=== PATIENT | female | born 1950 | race Caucasian/White ===

== ENCOUNTER 2022-12-18 10:19 | Day surgery (SDC) | payer MEDICARE, SELFPAY ==
[2022-12-18] VITALS (16 sets, daily range): BP systolic 102–136; BP diastolic 49–85; PULSE 59–87; RESP 14–18; TEMP 36.3–37.2; O2SAT 90–100; BMI 32.6
--- NOTE | 2022-12-18 11:01 | ED.ABDPAIN ---
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 This occurred since last night, she feels woke up this morning, but really started overnight. She describes bloating, pain that radiates to her right scapular region, she says taking a deep breath in really does not hurt, denies fevers or chills but has had some nausea associated with this. No diarrhea dysuria she has no previous history of any significant operations on her abdomen, but has had previous C-sections. Eating and drinking normal yesterday but today she has not eaten anything. Denies a rash, associated with this. No history of falls trauma, she is a nondrinker, nonsmoker, no use of drugs. Past history of some mild hypertension, Intolerance to both lisinopril and statins noted. MD elicited complaint: abdominal pain Pertinent past history: none Onset (ago): hour(s) Pain Consistency: constant Location: RUQ Severity: moderate Quality: stabbing Radiation: R flank Migration to: no migration Exacerbating factors: movement Relieving factors: nothing Associated symptoms: nausea Related Data Patient : No Home Medications Medication Instructions Recorded Confirmed hydrochlorothiazide 25 mg tablet 25 mg PO DAILY 12/18/22 12/18/22 metoprolol succinate 50 mg 50 mg PO HS 12/18/22 12/18/22 tablet,extended release 24 hr potassium chloride 10 mEq 10 meq PO DAILY 12/18/22 12/18/22 capsule,extended release prednisolone acetate 1 % eye 1 drp ophthalmic (eye-left) QID PRN 12/18/22 12/18/22 drops,suspension Allergies Allergy/AdvReac Type Severity Reaction Status Date / Time lisinopril AdvReac Unknown Cough Verified 12/18/22 10:27 [id number] Reductase AdvReac Unknown Verified 12/18/22 10:27 Inhibitor Review of Systems Status of ROS Reports: 10 or more systems reviewed and unremarkable except as noted in History and below PFSH PFSH Social History Smoking Status: Never smoker Exam Narrative: Exam Narrative: Patient is the in no apparent distress in room 6, speaking to me normally. Pupils are equal round reactive to light there is no scleral icterus redness TMs are normal oropharynx normal hydration status excellent, neck is supple no meningismus, chest is good air entry bilaterally with no wheezing crackles noted heart sounds are normal. She does not splint when she takes a deep breath in. She is very tender in the right upper quadrant on palpation in this area. No peritoneal signs, the rest of her abdomen is soft, bowel sounds are quiet. No CVA tenderness no masses no hernias noted. Lower extremities move normal range of motion, with no edema swelling rashes noted. Neurologically intact. Const: Vital Signs, click to edit/add: Vital Signs - 24 hr 12/18/22 10:29 12/18/22 11:59 12/18/22 12:15 Temperature 97.4 F L Pulse Rate [Pulse Oximeter] 60 78 Respiratory Rate 14 16 Blood Pressure [Le ft Upper Arm] 136/72 136/72 Pulse Oximetry 100 97 97 Oxygen Delivery Me thod Room Air Room Air Documenting provider has reviewed patient's vital signs: yes Course Course Hospital Course: I reviewed the ultrasound mother doing at the room, her gallbladder wall is a little thickened 0.6 and also 0.48. Stones were noted, with layering and also sludge, common bile duct was not enlarged. But she had a positive Concepcion sign. Given what I am seeing I think she has early cholecystitis. Await further radiological ovary but did contact my surgeon Dr. Armstrong, doctor: Low review the films, but likely will do a procedure this afternoon. I discussed with the patient she is in agreement. Pain is markedly better with the Dilaudid. Given what I see, she is ASA 2 for surgery, Reevaluation(s) Time of Reevaluation #1: 11:51 Reevaluation #1: Discussed with the patient she still has pretty good pain although the Toradol did take the edge wary I do not think she is going to tolerate ultrasound pushing on her abdomen to get the images, and she agreed to take Dilaudid 0.5 mg. Vital Signs Vital signs: Initial Vital Signs Temperature 97.4 F L 12/18/22 10:29 Temperature Source Temporal Artery Scan 12/18/22 10:29 Pulse Rate 60 12/18/22 10:29 Pulse Rhythm Regular 12/18/22 10:29 Respiratory Rate 14 12/18/22 10:29 Blood Pressure 136/72 12/18/22 10:29 Blood Pressure Mean 93 12/18/22 10:29 Blood Pressure Position Sitting 12/18/22 10:29 Pulse Oximetry 100 12/18/22 10:29 Oxygen Delivery Method Room Air 12/18/22 10:29 Vital Signs Temperature 97.4 F L 12/18/22 10:29 Pulse Rate 60 12/18/22 10:29 Respiratory Rate 14 12/18/22 10:29 Blood Pressure 136/72 12/18/22 10:29 Pulse Oximetry 100 12/18/22 10:29 Oxygen Delivery Method Room Air 12/18/22 10:29 Temperature 97.4 F L 12/18/22 10:29 Pulse Rate 78 12/18/22 11:59 Respiratory Rate 16 12/18/22 11:59 Blood Pressure 136/72 12/18/22 11:59 Pulse Oximetry 97 12/18/22 12:15 Oxygen Delivery Method Room Air 12/18/22 11:59 MDM - Abdominal Pain MDM Narrative Medical decision making narrative: During the evaluation of this patient I considered multiple differential diagnosis including life-threatening differentials which are appendicitis, aortic aneurysm, mesenteric ischemia, bowel perforation, ectopic , volvulus and bowel obstruction, other differential diagnosis include but are not limited to inflammatory bowel disease, cholecystitis, pancreatitis, hepatitis, gastritis, GERD, diverticulitis, peptic ulcer disease, pyelonephritis/UTI, renal colic/stone, pelvic inflammatory disease, cervicitis, endometritis, intrauterine , dysfunctional uterine bleeding, ovarian cyst/torsion, spontaneous as well as other etiologies I discussed with her that biliary colic would be high on my list, we will start an IV do some blood test, I initially ordered Dilaudid, but she declined this and would like just the Toradol. I will do a point of care ultrasound, Medical Records Attestation: I reviewed the patient's medical records. Lab Data Attestation: I reviewed the patient's lab results. Labs: Lab Results 12/18/22 12/18/22 Range/Units 11:00 11:15 WBC 13.16 H (4.50-11.00) K/uL RBC 3.91 L (4.00-5.20) m/uL Hgb 11.9 L (12.0-16.0) gm/dL Hct 35.1 (33.0-51.0) % MCV 90 (80-100) fL MCH 30 (26-34) pg MCHC 34 (32-36) gm/dL RDW Coeff of Ngoc 12.3 (11.5-15.5) % Plt Count 378 (140-440) K/uL Neut % (Auto) 88.9 H (42.0-72.0) % Lymph % (Auto) 6.9 L (20-44) % [place] % (Auto) 3.3 (0.0-11.0) % Eos % (Auto) 0.1 (0.0-7.0) % Baso % (Auto) 0.6 (0.0-3.0) % Neut # (Auto) 11.70 H (1.7-7.0) K/uL Lymph # (Auto) 0.90 (0.90-2.90) K/uL [place] # (Auto) 0.40 (0.00-0.90) K/UL Eos # (Auto) 0.00 (0.00-0.50) K/uL Baso # (Auto) 0.10 (0.00-0.30) K/uL Abs Immat Gran (auto) 0.00 (0.00-0.30) K/uL Imm/Tot Granulo (auto) 0.2 % Sodium 133 L (135-149) mmol/L Potassium 3.4 L (3.6-5.1) mmol/L Chloride 97 (96-114) mmol/L Carbon Dioxide 25 (20-32) mmol/L BUN 21 (7-30) mg/dL Creatinine 0.6 (0.5-1.5) mg/dL Estimated Creat Clear 44.56 Estimated GFR 96 ml/min Glucose 140 H (60-115) mg/dL Calcium 9.5 (8.4-10.6) mg/dL Total Bilirubin 0.3 (0.1-1.5) mg/dL Direct Bilirubin 0.0 (0.0-0.5) mg/dL AST 26 (12-35) U/L ALT 24 (4-35) U/L Alkaline Phosphatase 61 (40-150) U/L C-Reactive Protein 1.5 H (0.5-1.0) mg/dL Total Protein 8.1 (6.0-8.3) g/dL Albumin 4.7 (3.3-5.0) g/dL Amylase 68 (18-89) U/L Lipase 137 (23-300) U/L Urine Color Yellow (Yellow) Urine Appearance Slightly Cloudy A (Clear) Urine pH 5.5 (5.0-8.5) Ur Specific [place] >= 1.030 (1.000-1.030) Urine Protein Trace A (Negative) Urine Glucose (UA) Negative (Negative) Urine Ketones Negative (Negative) Urine Blood Negative (Negative) Urine Nitrite Negative (Negative) Urine Bilirubin Negative (Negative) Urine Urobilinogen 0.2 (0.2-1.0) Ur Leukocyte Esterase Negative (Negative) Urine RBC 0-2 (0-2) Urine WBC 0-2 (0-5) Ur Squamous Epith Cells Few (None-Few) Urine Bacteria Few A (None) Discharge Plan Discharge Clinical Impression: Acute cholecystitis Patient Disposition: XFER to OR Condition: Improved Prescriptions: No Action metoprolol succinate 50 mg tablet extended release 24 hr 50 mg PO HS hydrochlorothiazide 25 mg tablet 25 mg PO DAILY potassium chloride 10 mEq capsule, extended release 10 meq PO DAILY prednisolone acetate 1 % drops,suspension 1 drp ophthalmic (eye-left) QID PRN Follow Up/Referrals: Devon Torre MD [Primary Care Provider] -
[2022-12-18 11:12] LABS: Basophils Percent Auto 0.6 % (0.0-3.0); Eosinophils Percent Auto 0.1 % (0.0-7.0); Hematocrit 35.1 % (33.0-51.0); Hemoglobin* 11.9 gm/dL (12.0-16.0); Immature Granulocytes Pct Auto 0.2 %; Lymphocytes Percent Auto 6.9 % (20-44); Mean Corpuscular HGB Conc 34 gm/dL (32-36); Mean Corpuscular Hemoglobin 30 pg (26-34); Mean Corpuscular Volume 90 fL (80-100); Monocytes Percent Auto 3.3 % (0.0-11.0); Neutrophils Percent Auto 88.9 % (42.0-72.0); Platelet Count* 378 K/uL (140-440); RDW Coefficient of Variation % 12.3 % (11.5-15.5); Red Blood Count 3.91 m/uL (4.00-5.20); White Blood Count* 13.16 K/uL (4.50-11.00)
[2022-12-18 11:14] LABS: Slide Review Reflex No
[2022-12-18] MEDS: KETOROLAC 30 MG/ML inj IVP (11:25)
[2022-12-18] MEDS: 0.9 % SODIUM CHLORIDE 1000 ml 1,000 ML IV (11:25)
[2022-12-18 11:26] LABS: Appearance Urine Slightly Cloudy (Clear); Bilirubin Urine Negative (Negative); Blood Urine Negative (Negative); Color Urine Yellow (Yellow); Glucose Urine Negative (Negative); Ketones Urine Negative (Negative); Leukocyte Esterase Urine Negative (Negative); Nitrite Urine Negative (Negative); Protein Urine Trace (Negative); Specific Gravity Urine >= 1.030 (1.000-1.030); Urobilinogen Urine 0.2 (0.2-1.0); pH Urine 5.5 (5.0-8.5)
[2022-12-18] MEDS: ONDANSETRON 2 MG/ML inj 4 MG IVP (11:26)
[2022-12-18 11:27] LABS: Albumin* 4.7 g/dL (3.3-5.0); Chloride* 97 mmol/L (96-114); Sodium* 133 mmol/L (135-149)
[2022-12-18 11:28] LABS: Potassium* 3.4 mmol/L (3.6-5.1)
[2022-12-18 11:30] LABS: Amylase* 68 U/L (18-89); Aspartate Amino Transferase* 26 U/L (12-35); Bilirubin Total* 0.3 mg/dL (0.1-1.5); Carbon Dioxide* 25 mmol/L (20-32); Creatinine* 0.6 mg/dL (0.5-1.5); Est. Creatinine Clearance* 44.56; Estimated Glomerular Filt Rate 96 ml/min; Total Protein* 8.1 g/dL (6.0-8.3)
[2022-12-18 11:31] LABS: Alanine Aminotransferase* 24 U/L (4-35); Alkaline Phosphatase* 61 U/L (40-150); Blood Urea Nitrogen* 21 mg/dL (7-30); Calcium* 9.5 mg/dL (8.4-10.6); Glucose* 140 mg/dL (60-115); Lipase* 137 U/L (23-300)
[2022-12-18 11:33] LABS: C Reactive Protein* 1.5 mg/dL (0.5-1.0)
[2022-12-18 11:33] LABS: Bacteria Urine Few; RBC Urine 0-2 (0-2); Squamous Epithelial Cell Urine Few (None-Few); WBC Urine 0-2 (0-5)
--- NOTE | 2022-12-18 11:50 | CRLHL7_ITS ---
For Patients: As a result of the Century Cures Act, medical imaging exams and procedure reports are released immediately into your electronic medical record. You may view this report before your referring provider. If you have questions, please contact your health care provider. INDICATION: Right upper quadrant pain. FINDINGS: Transabdominal imaging. Visualized pancreas is unremarkable. Aorta is non aneurysmal. IVC is patent. Liver echotexture mildly coarse and echogenic. Small area of fatty sparing around the gallbladder fossa. Multiple stones in the gallbladder. Some layering sludge. Wall thickness mildly enlarged at 6 mm. No sonographic Concepcion sign is reported. Common bile duct 6 mm at the thanh hepatis without obvious filling defect. Right kidney sonographically normal. No ascites in the field of view. IMPRESSION: Cholelithiasis. Nonspecific mild wall thickening without acute cholecystitis sonographic Concepcion sign. Dictated by Dung Baig MD @ 12/18/2022 2:16:25 PM (Electronically Signed)
[2022-12-18] MEDS: HYDROmorphone 0.5 mg/0.5 ml inj IVP (11:56)
--- NOTE | 2022-12-18 12:15 | PC.NURSE ---
Report received from TORRI Tejeda. Guard Lieutenant went in to introduce self to patient. 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
--- NOTE | 2022-12-18 14:39 | P.GSHP_ITS ---
History of Present Illness History of Present Illness Date Seen: 12/18/22 Chief complaint: Bloating, back ache, nausea Narrative: Sophia Hollis is a 72 year old female who presented to the emergency department with epigastric and right upper quadrant abdominal pain. She states that the pain started yesterday after eating pizza for dinner. Initially she only felt ?really full?, but she woke up at 1:00 a.m. in severe pain. She describes it as a stabbing sensation in her upper mid abdomen, that eventually radiated to the side and back. She has never had pain like this before. The pain has improved with narcotic pain medicine in the emergency department, but is still present. Does report some associated nausea, no vomiting. Do last ate yesterday around 4:00 p.m.. Her abdominal surgical history is positive for C- section. She denies any problems with anesthesia or bleeding. 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 Review of Systems Status of ROS: Reports: 10 or more systems reviewed and unremarkable except as noted in History and below PFSH PFS Social History Smoking Status: Never smoker Meds Home Medications and Allergies Home Medications Medication Instructions Recorded Confirmed Type hydrochlorothiazide 25 mg tablet 25 mg PO DAILY 12/18/22 12/18/22 History metoprolol succinate 50 mg 50 mg PO HS 12/18/22 12/18/22 History tablet,extended release 24 hr potassium chloride 10 mEq 10 meq PO DAILY 12/18/22 12/18/22 History capsule,extended release prednisolone acetate 1 % eye 1 drp ophthalmic (eye-left) QID PRN 12/18/22 12/18/22 History drops,suspension Allergies Allergy/AdvReac Type Severity Reaction Status Date / Time lisinopril AdvReac Unknown Cough Verified 12/18/22 10:27 [id number] Reductase AdvReac Unknown Verified 12/18/22 10:27 Inhibitor Exam Narrative: Exam Narrative: General: Alert and oriented, no acute distress Respiratory: Equal breath rise bilaterally, clear breath sounds in maintained on room air CV: Regular rhythm and rate Abdomen: Soft, mild right upper quadrant tenderness to palpation with no guarding or rebound. Const: Vital Signs, click to edit/add: Vital Signs - 24 hr 12/18/22 10:29 12/18/22 11:59 12/18/22 12:15 Temperature 97.4 F L Pulse Rate [Pulse Oximeter] 60 78 Respiratory Rate 14 16 Blood Pressure [Le ft Upper Arm] 136/72 136/72 Pulse Oximetry 100 97 97 Oxygen Delivery Me thod Room Air Room Air 12/18/22 13:11 Temperature Pulse Rate [Pulse Oximeter] 65 Respiratory Rate 18 Blood Pressure [Le ft Upper Arm] 132/84 Pulse Oximetry 97 Oxygen Delivery Me thod Room Air Results Results Labs: Reviewed, leukocytosis (WBC 13). LFTs within normal limits Abdominal ultrasound report/results: report reviewed and image reviewed Assessment and Plan Assessment and plan (1) Acute cholecystitis: Status: Acute Plan Patient is a 72-year-old female with clinical workup and history consistent with acute cholecystitis. I had a detailed conversation with the patient regarding the diagnosis of acute cholecystitis. We discussed the treatment options including observation with diet modification and laparoscopic cholecystectomy. We discussed the risks of surgery (including but not limited to) the risks of bleeding, infection, injury to other structures in the abdomen including bile duct injury, bile leak and conversion to an open operation. We discussed the possibility that the patient's pain not improve with surgery. We discussed the possibility of permanent post-operative diarrhea that may require medical management. Additionally, the conceivably of complications requiring additional surgery or further hospitalization were also discussed including the risks of TX, respiratory failure, stroke and blood clots. The patient voiced an understanding of our conversation, had the opportunity to ask questions, agreed to accept the risks of surgery and asked that we proceed with surgery. -OR for laparoscopic cholecystectomy
[2022-12-18] MEDS: LACTATED RINGERS 1000 ML 1,000 ML 100 ML IV (14:50)
[2022-12-18] MEDS: BUPIVACAINE 0.5% 30 ML INJECTION (16:16)
--- NOTE | 2022-12-18 16:25 | PM.GSPRC ---
Operative Note Pre-op diagnosis: Acute cholecystitis Post-op diagnosis: Acute cholecystitis, hydrops of gallbladder Type of Procedure: Laparoscopic cholecystectomy Indications: Patient is a 72-year-old female who presented to the emergency department with clinical workup and symptoms consistent with acute cholecystitis. Risks and benefits of operative intervention were discussed at length with the patient. Risks included but was not limited to: Bleeding, infection, risk of damage to surrounding structures, possible need for additional procedures, possible need to convert to an open operation and postoperative complications such as pneumonia, pulmonary emboli or PR. All questions and concerns were addressed with the patient agreeing to proceed. Procedure Description: After discussing the risks and benefits of the procedure, the patient signed informed consent.? The operative site was marked and the patient was brought to the operating room and placed on the operating table in supine position.? Care was taken to pad the patient's pressure points.?? The patient was then intubated by anesthesia.?? The operative site was then prepped and draped in the usual sterile fashion.? A time-out was then performed. Entrance to the abdomen was gained via a 5 mm Visiport in the left upper quadrant. The abdomen was insufflated and briefly surveyed for signs of injury. There was none. 11 mm supra umbilical port was placed as well as 2 working ports along the right costal margin. Patient was then placed in reverse Trendelenburg position with the right side up. The gallbladder was hemorrhagic and distended. A laparoscopic needle was brought onto the field with about 60 mL of initially clear and then purulent material. Findings consistent with hydrops. A sample the fluid was sent for culture. After decompression the fundus was grasped and retracted cephalad. The infundibulum was grasped. A combination of hook cautery and blunt dissection was used to carefully dissect out the cystic duct and artery until they could clearly be seen entering the gallbladder without any intervening structures. Dissection was made difficult secondary to edema and inflammation. The gallbladder was dissected off the cystic plate to achieve the critical view. Once this was achieved the cystic duct and artery were each clipped with 2 clips proximally and 1 clip distally and transected with the scissors. The gallbladder was then taken off of the liver bed. And removed from the abdomen using an Endo-Catch bag. The gallbladder bed was surveyed for hemostasis. A small amount of bile which had spilled was suctioned from the abdomen. The umbilical port fascia was closed with 0 Vicryl via the Pee[place]e-Rebeca. the ports were then removed under direct vision. The skin was closed with absorbable subcuticular suture. Instrument sponge and needle counts were correct at the end of the case. The patient was then woken and transferred to the PACU in stable condition. ? The patient tolerated the procedure well. Findings: Hydrops of gallbladder. Anesthesia: GETA Surgeon: Gi Armstrong MD Specimen: Gallbladder Condition: stable Disposition: PACU
--- NOTE | 2022-12-18 16:37 | P.ANES_ITS ---
Anesthesia Charges Start Date/Time Anesthesia Start Date: 12/18/22 Anesthesia Start Time: 14:50 Stop Date/Time Anesthesia Stop Date: 12/18/22 Anesthesia Stop Time: 16:39 Summary Emergency: SENIOR SHAREPOINT ARCHITECT
--- NOTE | 2022-12-18 18:44 | PC.NURSE ---
Pt arrived to floor from surgery at 1725. Pt has 4 sites on abdomen. Pt had no complaints of pain. Pt alert and oriented. Tolerating ice chips well.?
[2022-12-18] MEDS: PIPERACILLIN/TAZOBACTAM 3.375 GM in 0.9 % SODIUM CHLORIDE Mini-bag 100 ML IVPB (19:41)
[2022-12-18] MEDS: 0.9 % SODIUM CHLORIDE 1000 ml 1,000 ML 125 ML IV (19:42)
[2022-12-18] MEDS: METOPROLOL SUCCINATE (XL) 50 MG TAB PO (20:12)
[2022-12-18] MEDS: ACETAMINOPHEN 325 MG TABLET 650 MG PO (20:12)
[2022-12-19] MEDS: PIPERACILLIN/TAZOBACTAM 3.375 GM in 0.9 % SODIUM CHLORIDE Mini-bag 100 ML IVPB ×2 (01:05→06:53)
[2022-12-19] MEDS: ACETAMINOPHEN 325 MG TABLET 650 MG PO ×2 (01:15→11:25)
[2022-12-19 04:35] VITALS: BP 98/56; PULSE 60; RESP 16; O2SAT 96
[2022-12-19] MEDS: 0.9 % SODIUM CHLORIDE 1000 ml 1,000 ML 125 ML IV (06:57)
[2022-12-19 07:40] VITALS: BP 98/60; PULSE 63; RESP 16; TEMP 36.8; O2SAT 97
--- NOTE | 2022-12-19 07:47 | PC.NURSE ---
END OF SHIFT NOTE: PT PLEASANT AND COOPERATIVE. A&Ox4. DENIES CP, SOB, N/V. AMBULATES INDEPENDENTLY.. VSS ON RA; AFEBRILE. 4x LAP SITES GLUE; C/D/I. FAMILY VISITED PRIOR TO HS; VERY LOVING AND SUPPORTIVE. CALL LIGHT WITHIN PT?S REACH.?
[2022-12-19 11:13] VITALS: BP 105/63; PULSE 64; RESP 16; TEMP 37.2; O2SAT 97
--- NOTE | 2022-12-19 11:20 | PM.DS1 ---
DS: Providers Provider Date Seen: 12/19/22 Primary care physician: Devon Torre MD Attending Physician on discharge: Gi Armstrong MD DS: Summary Hospital Course Hospital Course: Patient presented to the emergency department with clinical workup and symptoms consistent with acute cholecystitis. She underwent a laparoscopic cholecystectomy, with evidence of hydrops and some purulence of the gallbladder. She was continued on IV antibiotics while inpatient, with improvement of her abdominal pain, vitals stable and no fevers. No need for a course of antibiotics at home. On postop day 1 patient was tolerating a regular diet, having regular bowel movements and ambulating independently. Discharged home with instructions to call the clinic if she develops any increasing abdominal pain, fever or chills. Will see her for a 2 week postoperative follow-up. Time Spent with Patient Time attestation: Total time spent providing and/or coordinating discharge services: Exam Narrative: Exam Narrative: General: Alert and oriented, no acute distress Respiratory: Equal breath rise bilaterally, maintained on room air CV: Regular rhythm rate, well perfused Abdomen: Soft, appropriately tender over incision sites. Const: Vital Signs, click to edit/add: Vital Signs - 24 hr 12/18/22 11:59 12/18/22 12:15 12/18/22 13:11 Temperature Pulse Rate Pulse Rate [Pulse Oximeter] 78 65 Respiratory Rate 16 18 Blood Pressure [Le ft Arm] Blood Pressure [Le ft Upper Arm] 136/72 132/84 Pulse Oximetry 97 97 97 Oxygen Delivery Me thod Room Air Room Air Oxygen Flow Rate 12/18/22 17:30 12/18/22 17:45 12/18/22 18:00 Temperature 97.7 F 98.6 F 98.9 F Pulse Rate 82 Pulse Rate [Pulse Oximeter] 62 59 L Respiratory Rate 16 16 16 Blood Pressure [Le ft Arm] 132/85 125/76 125/76 Blood Pressure [Le ft Upper Arm] Pulse Oximetry 96 90 Oxygen Delivery Me thod Room Air Room Air Room Air Oxygen Flow Rate 0 0 0 12/18/22 18:15 12/18/22 18:30 12/18/22 19:00 Temperature 98.9 F 98.9 F 98.9 F Pulse Rate Pulse Rate [Pulse Oximeter] 62 62 62 Respiratory Rate 16 16 16 Blood Pressure [Le ft Arm] 122/72 116/65 125/75 Blood Pressure [Le ft Upper Arm] Pulse Oximetry 97 97 100 Oxygen Delivery Me thod Room Air Room Air Room Air Oxygen Flow Rate 0 0 0 12/18/22 19:30 12/18/22 20:30 12/18/22 21:30 Temperature Pulse Rate Pulse Rate [Pulse Oximeter] 87 63 62 Respiratory Rate 16 16 16 Blood Pressure [Le ft Arm] 118/77 113/68 112/56 L Blood Pressure [Le ft Upper Arm] Pulse Oximetry 96 96 94 Oxygen Delivery Me thod Room Air Room Air Room Air Oxygen Flow Rate 12/18/22 21:33 12/18/22 22:30 12/18/22 23:30 Temperature Pulse Rate Pulse Rate [Pulse Oximeter] 63 78 Respiratory Rate 16 16 16 Blood Pressure [Le ft Arm] 118/64 102/49 L Blood Pressure [Le ft Upper Arm] Pulse Oximetry 97 96 Oxygen Delivery Me thod Room Air Room Air Oxygen Flow Rate 12/19/22 04:35 12/19/22 07:40 Temperature 98.3 F Pulse Rate Pulse Rate [Pulse Oximeter] 60 63 Respiratory Rate 16 16 Blood Pressure [Le ft Arm] 98/56 L 98/60 Blood Pressure [Le ft Upper Arm] Pulse Oximetry 96 97 Oxygen Delivery Me thod Room Air Room Air Oxygen Flow Rate 0 DS: Data Data Completed and Pending Labs on day of discharge: Labs from last 24 hours 12/18/22 12/18/22 11:15 11:00 Sodium 133 L Potassium 3.4 L Chloride 97 Carbon Dioxide 25 BUN 21 Creatinine 0.6 Estimated Creat Clear 44.56 Estimated GFR 96 Glucose 140 H Calcium 9.5 Total Bilirubin 0.3 Direct Bilirubin 0.0 AST 26 ALT 24 Alkaline Phosphatase 61 C-Reactive Protein 1.5 H Total Protein 8.1 Albumin 4.7 Amylase 68 Lipase 137 Urine Color Yellow Urine Appearance Slightly Cloudy A Urine pH 5.5 Ur Specific [place] >= 1.030 Urine Protein Trace A Urine Glucose (UA) Negative Urine Ketones Negative Urine Blood Negative Urine Nitrite Negative Urine Bilirubin Negative Urine Urobilinogen 0.2 Ur Leukocyte Esterase Negative Urine RBC 0-2 Urine WBC 0-2 Ur Squamous Epith Cells Few Urine Bacteria Few A Preliminary micro results at discharge 12/18/22 Unknown Urine Culture - Preliminary Urine,Clean Catch 12/18/22 15:32 Anaerobic Culture - Preliminary Gallbladder Fluid Culture in Progress Discharge Plan Discharge Disposition: Home, Self-Care Discharging Surgeon: Gi Armstrong Follow-Up Appointment: 2 week follow up, [facility] Prescriptions: New oxycodone 5 mg tablet 5 mg PO Q6H PRN (Reason: pain) Qty: 10 0RF senna 8.6 mg capsule 8.6 mg PO DAILY PRN (Reason: constipation) Qty: 90 0RF Continued metoprolol succinate 50 mg tablet extended release 24 hr 50 mg PO HS hydrochlorothiazide 25 mg tablet 25 mg PO DAILY potassium chloride 10 mEq capsule, extended release 10 meq PO DAILY prednisolone acetate 1 % drops,suspension 1 drp ophthalmic (eye-left) QID PRN Activity Level: No strenuous activity Activity Detail: Activity as tolerated. Avoid strenuous activity. No lifting greater than 20 lb for 2 weeks. Discharge Diet: Low Fat/Low Cholesterol Diet Detail: Continue the low-fat diet for the next 2 weeks. After 2 weeks you can start a regular diet. Patient Instructions: Oxycodone, Rapid Release (By mouth), Senna (By mouth), Surgical Site Infections (DC), General Anesthesia (DC), Laparoscopic Cholecystectomy (DC), Post-Operative Instructions: Laparoscopic Cholecystectomy Additional Instructions: You were prescribed a narcotic pain medication. In addition you may supplement with Tylenol and/or ibuprofen. Be sure to not exceed greater than 4 g of Tylenol in a 24 hour period. While on narcotic pain medicine please take stool softeners. A prescription of stool softeners has been sent to the pharmacy. Stop if having greater than 2 stools per day. You can shower. Do not soak in a bath or swim for 2 weeks. Forms: Work/School Release Follow-up: Gi Armstrong MD [Staff Physician] - 12/30/22 1:15 pm ([facility] for follow-up.) Devon Torre MD [Primary Care Provider] - Discharge Orders: Discharge Order (Routine); Ordered 12/19/22 Ordered By: Gi Armstrong
--- NOTE | 2022-12-19 12:42 | PC.NURSE ---
Pt alert and oriented. VSS. Pt independent in room and in hallways. Pt walked in hallway right away in AM. Pt had pain ranging from 0-4 during shift see EMAR for intervention. Pt's IV removed at 1130; catheter intact. Pt discharging to home and was picked up by friend at 1230pm.
--- NOTE | 2022-12-20 14:13 | SUR.PHASEI ---
after talking with Didier on incomplete charting on Phase I (general data and completed by/time entry), he gave this nurse permission to complete the charting based on his exit from PACU to [facility]
== END 2022-12-19 12:30 | disposition home or self-care (01) ==
LOC: ED 13:04 → SS 13:34 → MEDSURG 17:15
PROVIDERS: Emergency Provider Family Medicine; PCP Family Medicine; Visit Provider Surgery
PROC: 0FT44ZZ Resection of Gallbladder, Percutaneous Endoscopic Approach (ICD-10-PCS; CPT 47562; principal; 2022-12-18 14:20)
DX: K80.00 Calculus of gallbladder with acute cholecystitis without obstruction (principal); K82.1 Hydrops of gallbladder
CPT/HCPCS: 47562; 00790; 36415; 76705; 80048; 80076; 81001; 82150; 83690; 85025; 86140; 87070; 87075; 87086; 87186; 87205; 88304; 93005; 94761; 99140; 99284; A9270; J0330; J0665; J1100; J1170; J1885; J2405; J2543; J2704; J3010; J3490; J7030; J7120

== ENCOUNTER 2023-07-06 08:04 | Day surgery (SDC) | payer MEDICARE, SELFPAY ==
[2023-07-06 08:20] VITALS: BP 143/79; PULSE 63; RESP 16; TEMP 36.3; O2SAT 98; BMI 32.5
[2023-07-06] MEDS: TETRACAINE 0.5% OPHTH 1 DROP EYE-LEFT ×2 (08:30→08:35)
[2023-07-06] MEDS: KETOROLAC OPHTH 0.5% 1 DROP EYE-LEFT ×2 (08:30→08:35)
[2023-07-06] MEDS: SODIUM CHLORIDE 0.9 % (FLUSH) 10 ML SYRINGE IVF (09:15)
--- NOTE | 2023-07-06 09:15 | SUR.PREOP ---
The eye drops brought by the patient (Ketorolac, Prednisolone, and Ofloxacin) are examined and I have determined they are labeled by the patient's pharmacy for this patient as prescribed by the surgeon. The bottles are intact, recently obtained and appear to be correct.
--- NOTE | 2023-07-06 09:56 | W.ANESCHARGE ---
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
[2023-07-06] MEDS: BALANCED SALT IRRIG SOLN 15 ML EYE-LEFT (09:57)
[2023-07-06] MEDS: TETRACAINE 0.5% OPHTH 2 DROP EYE-LEFT (09:58)
[2023-07-06 10:30] VITALS: BP 155/80; PULSE 67; RESP 16; TEMP 36.8; O2SAT 99
--- NOTE | 2023-07-06 10:56 | W.PM.OPTPROC ---
Procedure Note Date of procedure: 07/06/23 Will [facility] bill your pro fee for this procedure?: Yes Procedure Description: SURGEON: Cara Perez MD PREOPERATIVE DIAGNOSIS: Nuclear sclerotic cataract, left eye. POSTOPERATIVE DIAGNOSIS: Nuclear sclerotic cataract, left eye. NAME OF OPERATION: Phacoemulsification of cataract with posterior chamber intraocular lens implantation in the left eye. ANESTHESIA: Topical. ESTIMATED BLOOD LOSS: Less than 2 cc. COMPLICATIONS: None. PATHOLOGY SPECIMEN: None. INDICATIONS: See consult note for details. The risks, benefits and alternatives of the procedure were explained to the patient, who elected to proceed and signed informed consent to do so. PROCEDURE: The patient was brought to the pre-holding area where the left eye was identified as the operative eye. I placed my initials above this eye. The patient received eye drops consisting of 0.5% tetracaine, 1% tropicamide, 10% phenylephrine, and 0.5% ketorolac. The patient was then brought to the operating room where the left eye was again identified as the operative eye. The eye was prepped with Betadine and draped in the usual sterile ophthalmic fashion. A #15 super-sharp blade was used to create a paracentesis site. 1% non-preserved intracameral lidocaine was injected into the anterior chamber. Endocoat was injected into the anterior chamber. A 2.4 mm keratome was used to create a three-plane self-sealing incision 1 mm anterior to the temporal limbus. A cystotome was used to create an anterior capsular leaflet. The Utrata forceps were used to extend this to form a continuous curvilinear capsulorrhexis. Hydrodissection was performed. The cataract was removed with phacoemulsification using the [id number] technique. The irrigation and aspiration tip was used to remove the remaining cortex. Healon was injected into the capsular bag. An TEODORO ZCB00 intraocular lens of 21.5 diopters was injected into the capsular bag. The irrigation and aspiration tip was used to remove the remaining viscoelastic. Balanced salt solution on a cannula was used to hydrate the wound, and the wound was found to be watertight. The pupil was noted to be round. DISPOSITION: The patient was taken to the recovery room and discharged to home in stable condition. The patient was instructed to call me or go to the emergency department with any sudden change, including dramatic loss of vision, severe pain in the eye or eyebrow region, nausea, or vomiting. The patient will follow up in the clinic tomorrow morning.
--- NOTE | 2023-07-06 11:01 | W.ANESCHARGE ---
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
== END 2023-07-06 11:15 | disposition home or self-care (01) ==
LOC: OR 08:04
PROVIDERS: PCP Family Medicine; Visit Provider Ophthalmology
PROC: (CPT 66984; principal; 2023-07-06 08:15)
DX: H25.12 Age-related nuclear cataract, left eye (principal)
CPT/HCPCS: 66984; 00142; 99100; A9270; J2250; J3010; V2632

== ENCOUNTER 2023-07-20 08:10 | Day surgery (SDC) | payer MEDICARE, SELFPAY ==
[2023-07-20] MEDS: TETRACAINE 0.5% OPHTH 1 DROP EYE-RIGHT ×2 (08:30→08:42)
[2023-07-20] MEDS: KETOROLAC OPHTH 0.5% 1 DROP EYE-RIGHT ×2 (08:41→08:50)
[2023-07-20 08:55] VITALS: BP 150/67; PULSE 59; RESP 16; TEMP 36.6; O2SAT 97
[2023-07-20 08:58] VITALS: BMI 32.5
[2023-07-20] MEDS: SODIUM CHLORIDE 0.9 % (FLUSH) 10 ML SYRINGE IVF (08:58)
[2023-07-20] MEDS: TETRACAINE 0.5% OPHTH 2 DROP EYE-RIGHT (09:25)
[2023-07-20] MEDS: BALANCED SALT IRRIG SOLN 15 ML EYE-RIGHT (09:30)
--- NOTE | 2023-07-20 09:45 | W.ANESCHARGE ---
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
[2023-07-20 09:53] VITALS: BP 147/76; PULSE 57; RESP 14; TEMP 36.4; O2SAT 98
--- NOTE | 2023-07-20 09:53 | P.OPTPRC_ITS ---
Procedure Note Date of procedure: 07/20/23 Will [facility] bill your pro fee for this procedure?: Yes Procedure Description: SURGEON: Cara Perez MD PREOPERATIVE DIAGNOSIS: Nuclear sclerotic cataract, right eye. POSTOPERATIVE DIAGNOSIS: Nuclear sclerotic cataract, right eye. NAME OF OPERATION: Phacoemulsification of cataract with posterior chamber intraocular lens implantation in the right eye. ANESTHESIA: Topical. ESTIMATED BLOOD LOSS: Less than 2 cc. COMPLICATIONS: None. PATHOLOGY SPECIMEN: None. INDICATIONS: See consult note for details. The risks, benefits and alternatives of the procedure were explained to the patient, who elected to proceed and signed informed consent to do so. PROCEDURE: The patient was brought to the pre-holding area where the right eye was identified as the operative eye. I placed my initials above this eye. The patient received eye drops consisting of 0.5% tetracaine, 1% tropicamide, 10% phenylephrine, and 0.5% ketorolac. The patient was then brought to the operating room where the right eye was again identified as the operative eye. The eye was prepped with Betadine and draped in the usual sterile ophthalmic fashion. A #15 super-sharp blade was used to create a paracentesis site. 1% non-preserved intracameral lidocaine was injected into the anterior chamber. Endocoat was injected into the anterior chamber. A 2.4 mm keratome was used to create a three-plane self-sealing incision 1 mm anterior to the temporal limbus. A cystotome was used to create an anterior capsular leaflet. The Utrata forceps were used to extend this to form a continuous curvilinear capsulorrhexis. Hydrodissection was performed. The cataract was removed with phacoemulsification using the [id number]-[id number] technique. The irrigation and aspiration tip was used to remove the remaining cortex. Healon was injected into the capsular bag. An TEODORO ZCB00 intraocular lens of 21.5 diopters was injected into the capsular bag. The irrigation and aspiration tip was used to remove the remaining viscoelastic. Balanced salt solution on a cannula was used to hydrate the wound, and the wound was found to be watertight. The pupil was noted to be round. DISPOSITION: The patient was taken to the recovery room and discharged to home in stable condition. The patient was instructed to call me or go to the emergency department with any sudden change, including dramatic loss of vision, severe pain in the eye or eyebrow region, nausea, or vomiting. The patient will follow up in the clinic tomorrow morning.
--- NOTE | 2023-07-20 09:57 | W.ANESCHARGE ---
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
== END 2023-07-20 10:40 | disposition home or self-care (01) ==
LOC: OR 08:13
PROVIDERS: PCP Family Medicine; Visit Provider Ophthalmology
PROC: (CPT 66984; principal; 2023-07-20 08:15)
DX: H25.11 Age-related nuclear cataract, right eye (principal)
CPT/HCPCS: 66984; 00142; 99100; A9270; J2250; J3010; V2632